=== PATIENT | male | born 1970 | race Caucasian/White ===

== ENCOUNTER 2017-03-11 16:00 | Outpatient (CLI) | payer OTHER ==
[~2017-03-11] VITALS: Ht 177.8 cm; Wt 44.5 kg
[2017-03-11] MEDS ORDERED: DEME300T8 PO (16:18)
[2017-03-11] MEDS ORDERED: ACET-2047 PO (16:18)
[2017-03-11] MEDS ORDERED: LANT3I SC (16:18)
[2017-03-11] MEDS ORDERED: INSU100C SQ (16:18)
[2017-03-11] MEDS ORDERED: METO25TA7 PO (16:18)
[2017-03-11] MEDS ORDERED: SODI1TAB2 PO (16:18)
[2017-03-11] MEDS ORDERED: HYDR-906 PO (16:18)
[2017-03-11] MEDS ORDERED: METF1000 PO (16:18)
[2017-03-11] MEDS ORDERED: DOCU-159 PO (16:18)
[2017-03-11] MEDS ORDERED: ATOR20TA38 PO (16:18)
[2017-03-11 16:19] VITALS: Ht 177.8 cm; Wt 44.5 kg
[2017-03-11 16:20] VITALS: BP 119/77; PULSE 92; RESP 18
--- NOTE | 2017-03-11 16:36 | PN ---
Date/Time of Note Date/Time of Note DATE: 03/11/17 TIME: 16:29 Outpatient Progress Note Chief Complaint Hyponatremia/SIADH/diabetes/hyperlipidemia/ HPI Hyponatremia/patient had been recently admitted with hyponatremia, patient was hospitalized, patient had been treated, patient still feel weakness tiredness, patient also has slight hallucination for last 3 weeks, slowly getting better, but still persistent, SIADH/patient has been diagnosed SIADH, patient still has hyponatremia, and according to the nurse, patient was seen by home health care nurse patient feel thirsty, and wants to drink more water,, Diabetes/no frequency urgency, no impaired vision, no gastroparesis, Hyperlipidemia/no xanthoma, on medication, Neuropathy/patient has diabetic neuropathy, patient has tingling numbness and pain in the both legs, has difficulty in walking, Review of Systems Const: No Fever, no chills, no Wt. loss, no Fatigue, normal appetite, no diaphoresis. Patient slightly emaciated, Eyes: No pain, no discharge, no redness, no visual change, no foreign body. ENT: No pain, no bleeding, no congestion, no sore throat, no dysphagia, no discharge or rhinitis. Lymph: No adenopathy, no tender nodes, no lymphedema. Resp: No SOB, no cough, no sputum, no wheezing, no chest pain. CV: No chest pain, no palpitaions, no CERON, no PND, no edema. GI: Normal appetite, no pain, no nausea, no vomiting, no diarrhea, no blood, no constipation. : No frequency, no urgency, no dysuria, no hematuria, no flank pain, no discharge, no bleeding. Musc: Both leg pain, and numbness in both feet,, no back pain, no neck pain, no knee pain, no restricted ROM. Skin: No rash, no skin lesions, no erythema, no laceration, no bruising, no pruritus. Neuro: No MCCORMICK, no dizziness, sometime hallucination, no syncope, no seizure, no focal-weakness neuropathy pain both feet,. Endo: No polyuria, patient has slight polydypsia, no dry-skin, no temp- intolerance. Psych: Sometime hallucinations, no depression, no anxiety, no suicidal ideation. Ext: No edema, no pain, no ulcer, no weakness. Physical Exam Vital Signs Date Time Temp Pulse Resp B/P Pulse Ox O2 Delivery O2 Flow Rate FiO2 03/11/17 16:20 98.0 92 18 119/77 92 Room Air General Appearance: A [] 47 year-old male who appears well-developed, well- nourished, in no acute distress. HEENT: Head normocephalic, atraumatic. Pupils equal, round, reactive to light and accommodate. Sclerae are no jaundice. Nasal turbinates pink without erythema or nasal discharge. Mucous membranes pink and moist without lesions. Oropharynx clear without any exudate or discharge. NECK: Supple. Trachea midline, No thyromegaly, No cervical lymphadenopathy, No mass, No carotid bruits, No JVD, Carotid pulses 2+ bilaterally. PULMONARY: Clear to auscultaion bilaterally, No retractions, Chest expansion symmetric bilaterally, no rales, no ronchi, no dulness on percussion. CARDIAC: Normal SI and S2, Regular rate and rythm, no murmur, gallop, or rub. GASTROINTESTINAL: Abdomen is soft, non-tender, Non Rigid, No distention, Positive bowel sounds x4 quadrants, Liver normal. SKIN: Warm, dry, no rash, no bruise, no echmosis. EXTREMITIES: Bilateral lower extremities no edema, no phlabitus, pulse palpable , no contracture. MUSCULOSKELETAL: Spine Normal, Non-tender, Normal range of motion, No swelling, no deformity, no clubbing, or cyanosis, the patient has no edema to bilateral lower extremities, dorsalis pedis pulses palpable bilaterally. NEUROLOGIC: The patient is awake, alert, oriented, responding to yes/no questions appropriately, moving all extremities, cranial nerve intact, normal strenght, normal power, normal coordination, normal gait. Allergies Coded Allergies: No Known Drug Allergies (Verified Allergy, Unknown, 03/11/17) PMH Diabetes/hyponatremia/SIADH/hyperlipidemia/hallucination Social Hx No smoking no drinking, Family Hx Noncontributory, Assessment/Plan Impression Hyponatremia SIADH Diabetes Hyperlipidemia Hallucination Neuropathy Plan Patient education done about diabetes hypertension hyperlipidemia hyponatremia SIADH neuropathy and complication explained, patient very high risk for repeated admission, patient also very high risk for fall, patient education done about controlling the blood sugar, BMP in few days after patient finishes medication Patient encouraged to follow with the primary care physician, and also patient encouraged not to drink more fluid, restrict fluid restriction to 1 L per day, Medications Home Meds Reported Medications Sodium Chloride* (Sodium Chloride*) 1 Gm Tablet, 1 GM PO BID, TAB 03/11/17 Metoprolol Succinate* (Toprol XL*) 25 Mg Tab.sr.24h, 25 MG PO BID, #30 TAB 03/11/17 Metformin Hcl* (Metformin Hcl*) 1,000 Mg Tablet, 1000 MG PO WITH BREAKFAST DINNE , #60 TAB 03/11/17 Insulin Lispro (Humalog) 100 Unit/1 Ml Cartridge, 7 UNIT SQ TID 03/11/17 Insulin Glargine* (Lantus*) 100 Unit/Ml Soln, 25 UNIT SC QHS, #1 VIAL 03/11/17 Atorvastatin Calcium* (Atorvastatin Calcium*) 20 Mg Tablet, 20 MG PO QHS, #30 TAB 03/11/17 Hydrocodone/Acetaminophen ([place] 5-325 Tablet) 1 Each Tablet, 1 EACH PO Q6 for PAIN LEVEL 6-10, TAB 03/11/17 Acetaminophen* (Acetaminophen*) 650 Mg Tablet, 650 MG PO Q6H Y for PAIN AND OR ELEVATED TEMP, #30 TAB 03/11/17 Docusate Sodium* (Docusate Sodium*) 100 Mg Capsule, 100 MG PO BID for CONSTIPATION, #60 CAP 03/11/17 Demeclocycline Hcl* (Demeclocycline Hcl*) 300 Mg Tablet, 300 MG PO BID for 30 Days, #60 TAB 03/11/17 MELODY SAM MD Mar 11, 2017 16:36
== END 2017-03-11 17:00 | disposition home or self-care (01) ==
LOC: DCC 16:00
PROVIDERS: ATTEND Internal Medicine
DX: E78.5 Hyperlipidemia, unspecified (principal); G62.9 Polyneuropathy, unspecified; E22.2 Syndrome of inappropriate secretion of antidiuretic hormone; R44.3 Hallucinations, unspecified